=== PATIENT | female | born 1985 | race Caucasian/White ===

== ENCOUNTER 2016-05-07 22:44 | Outpatient (CLI) | payer MEDICAID ==
[2016-05-07 23:21] LABS: APPEARANCE,URINE CLEAR; BILIRUBIN,URINE NEGATIVE (NEGATIVE); GLUCOSE, URINE NEGATIVE (NEGATIVE); KETONES,URINE NEGATIVE (NEGATIVE); LEUKOCYTE ESTERASE,URINE TRACE (NEGATIVE); NITRITE,URINE NEGATIVE (NEGATIVE); PROTEIN,URINE NEGATIVE (NEGATIVE); URINE SPECIFIC GRAVITY 1.004; UROBILINOGEN,URINE NEGATIVE mg/dL (<2.0)
--- NOTE | 2016-05-08 00:55 | Non Stress Test Report ---
Non Stress Test Datetime Report Generated by CPN: 05/08/2016 00:54 DEMOGRAPHIC EGA NST: 34.5 INDICATION Indication for Study: Ordered by Provider VITAL SIGNS Temperature - NST: 97.6 Pulse - NST: 80 RESP - NST: 18 NBPSYS NST: 109 NBPDIA NST: 66 MONITORING Monitor Explained: Monitor Explained; Test Explained Time on Monitor: 05/07/2016 22:59 Time off Monitor: 05/08/2016 00:42 NST Duration: 103 NST INTERVENTIONS NST Interventions: None Physician Notified NST: Hassan BABY A: [id number] BABY A Movement : Present Contraction Frequency : none FHR Baseline : 130 Accelerations : 15X15 Decelerations : None Variability : Moderate 6-25bpm NST Review: Meets Criteria for Reactive NST NST Review and Verified By : Lucas Limon RN NST Results: Reactive NST REPORT Report Trigger: Send Report
--- NOTE | 2016-05-08 04:46 | L&D Flow Sheet ---
LD Flowsheet Datetime Report Generated by CPN: 05/08/2016 04:45 Datetime: 05/08/2016 00:42 Vital Signs Stage of : OB Triage (Crystal [place], RN) Strip Reviewed by: C. [place], RN (Crystal Mandi, RN) Teaching Instructional Method: Verbal; Patient Instructed; Family/Support Person Instructed; Verbalized Understanding (Charlotte Goldberg RN) Plan of Care: Plan of Care Discussed (Charlotte Goldberg RN) Pain Management: Comfort Measures (Charlotte Goldberg RN) PTL/PROM: Hydration; Expected Outcomes (Charlotte Goldberg RN) Related: Common Discomforts of ; Maternal Physical Changes; Hydration; Activity and Rest (Charlotte Goldberg RN) Communication Communication: RN at Bedside; RN Reviewed Strip (Charlotte Goldberg RN) Communication Comments: Pt educated on common pains during , pt instructed to follow up with OB on monday morning Pt educated on signs and symptoms to report if worsening. Pt verbalized understanding. (Charlotte Goldberg RN) Datetime: 05/08/2016 00:35 Vital Signs Stage of : OB Triage (Charlotte Goldberg RN) Strip Reviewed by: Honorio goldberg RN (Charlotte Goldberg RN) Communication Communication: RN Reviewed Strip; Provider Orders Received; Call/Page Placed to Provider (Charlotte Goldberg RN) Provider Notified (Name): Sonya (Charlotte Goldberg RN) Notification Reason: Status Update; Status; Membrane Status; Uterine Activity; Pain (Charlotte Goldberg RN) Communication Comments: Notified Dr. iqbal of pt pain status and OB history. Received orders for pt t o DC and follow up with current OB on monday. (Charlotte Goldberg RN) Datetime: 05/08/2016 00:31 Uterine Activity Monitor Mode: External; Palpation (Crystal [place], RN) Frequency (min): 0 (Crystal Mandi, RN) Resting Tone (Palpate): Relaxed (Crystal [place], RN) Contraction Comments: Irritability (Crystal [place], RN) Assessment A Monitor Mode: External US (Crystal [place], RN) Variability: Moderate 6-25 bpm (Crystal Mandi, RN) Accelerations: 15X15 (Crystal [place], RN) Decelerations: None (Crystal Mandi, RN) Datetime: 05/08/2016 00:12 NBP Sys/Tiera/Mean (mmHg): 109 (QS system process) : 66 (QS system process) : 81 (QS system process) Pulse: 80 (QS system process) LaborFlag: Antepartum (QS system process) Datetime: 05/07/2016 23:53 Monitor Interventions for UA: [place] Adjusted (Crystal [place], RN) Datetime: 05/07/2016 23:46 Monitor Interventions for UA: [place] Adjusted (Crystal Mandi, RN) Datetime: 05/07/2016 23:41 Uterine Activity Monitor Mode: External; Palpation (Crystal Mandi, RN) Monitor Interventions for UA: [place] Adjusted (Crystal [place], RN) Resting Tone (Palpate): Relaxed (Crystal Mandi, RN) Datetime: 05/07/2016 23:13 Uterine Activity Monitor Mode: Palpation (Crystal [place], RN) Resting Tone (Palpate): Relaxed (Crystal Mandi, RN) Assessment A Monitor Mode: External US (Crystal [place], RN) FHR Baseline Rate : 120 (Crystal [place], RN) Variability: Moderate 6-25 bpm (Crystal [place], RN) Decelerations: None (Crystal [place], RN) Patient Care Patient Position/Activity: Left Lateral (Crystal Mandi, RN) Datetime: 05/07/2016 23:11 Monitor Interventions for UA: [place] Adjusted (Crystal [place], RN) Datetime: 05/07/2016 22:58 NBP Sys/Tiera/Mean (mmHg): 109 (QS system process) : 72 (QS system process) : 84 (QS system process) Pulse: 93 (QS system process) LaborFlag: Antepartum (QS system process) Datetime: 05/07/2016 22:50 Vital Signs Stage of : Antepartum (Crystal Mandi, RN) Assessment A Monitor Mode: External US (Crystal [place], RN) Pain Pain Scale: 4 (Crystal Mandi, RN) Pain Presence: Intermittent (Crystal [place], RN) Pain Type: Sharp; Stabbing (Crystal [place], RN) Pain Location: Abdomen; Perineum (Crystal [place], RN) Pain Goal: 2 (Crystal Mandi, RN) Pain Relief Measures: Comfort Measures (Crystal Mandi, RN) Pain Coping: Talking Through Contractions (Crystal Mandi, RN) Vaginal Exam Vaginal Bleeding: None (Crystal [place], RN) Maternal Assessment Level of Consciousness: Fully Conscious (Crystal [place], RN) DTR's/Clonus: DTRs 1+; No Clonus (Crystal Mandi, RN) Headache: Denies (Crystal Mandi, RN) Breath Sounds, Left: Clear and Equal (Crystal [place], RN) Breath Sounds, Right: Clear and Equal (Crystal [place], RN) Nausea/Vomiting: Denies (Crystal Mandi, RN) RUQ Epigastric Pain: Denies (Crystal [place], RN) Teaching Instructional Method: Verbal; Patient Instructed; Family/Support Person Instructed; Verbalized Understanding (Crystal Mandi, RN) Plan of Care: Plan of Care Discussed (Charlotte Goldberg RN) Unit Routine: [place] to Room; Call Ortiz; Bed; Visiting Policy (Charlotte Goldberg RN) Labor/Induction: Labor Stages (Charlotte Goldberg RN) Pain Management: Comfort Measures (Charlotte Goldberg RN) Related: Common Discomforts of (Charlotte Goldberg RN) LaborFlag: Antepartum (QS system process)
--- NOTE | 2016-05-08 04:46 | L&D General Admission ---
General Admit Datetime Report Generated by CPN: 05/08/2016 04:45 INFORMATION Patient Age: 30 (05/07/2016 22:44:QS system process) EDC: 06/13/2016 00:00 (05/07/2016 22:49:Kourtney Limon RN) : 10 (05/07/2016 22:49:Charlotte Raymond RN) Para: 5 (05/08/2016 00:58:Charlotte Raymond RN) Para: 5 (05/07/2016 22:49:Charlotte Raymond RN) Cesareans: 5 (05/07/2016 22:49:Charlotte Raymond RN) Baby, Number in Womb: 1 (05/08/2016 00:58:Charlotte Raymond RN) CARE Primary Mushroom Sorter Grader: Other-Annotate (05/07/2016 22:49:Charlotte Raymond RN) Mushroom Sorter Grader Other: [facility] L_D (05/07/2016 22:49:Charlotte Raymond RN) Adequate Care: Yes (05/07/2016 22:49:Charlotte Raymond RN) Height (in): 64 (05/07/2016 23:28:QS system process) ALLERGIES Medication Allergy: Yes (05/07/2016 22:49:Charlotte Raymond RN) Medication Allergies: ketorolac tromethamine/Hallucinations (11/20/2014); Penicillins/MO/Hallucinations (07/16/2014); clonazepam/SV/elevated BP (07/16/2014); latex/TX/rash (07/16/2014) (05/07/2016 22:44:QS system process) Latex Allergy: Latex Allergies (05/07/2016 22:49:Charlotte Raymond RN) Food Allergies: Onions (05/07/2016 22:49:Charlotte Raymond RN) Environmental Allergies: NA (05/07/2016 22:49:Charlotte Raymond RN) COMMUNICATION Primary Language: Georgian (05/07/2016 22:49:Crystal [place] RN) Communication Barrier(s): None (05/07/2016 22:49:Crystal Mandi, RN) DEMOGRAPHICS Address: [address] [place] [id number] (05/07/2016 22:44:QS system process) Zipcode: [address] (05/07/2016 22:44:QS system process) Home (05/07/2016 22:44:QS system process) N: [phone] (05/07/2016 22:44:QS system process) Next of Kin Name: ASHLEY US (05/07/2016 22:44:QS system process) Next of Kin (05/07/2016 22:44:QS system process) Next of Kin Relationship: FA (05/07/2016 22:44:QS system process) Date of : 1985 (05/07/2016 22:44:QS system process) Marital Status: Single (05/07/2016 22:44:QS system process) Sex: Female (05/07/2016 22:44:QS system process) Race: (05/07/2016 22:44:QS system process) Ethnicity: Non- or (05/07/2016 22:44:QS system process) Taoist: Alevism (05/07/2016 22:44:QS system process) DRUG AND ALCOHOL USE Alcohol: No (05/07/2016 22:49:Charlotte Raymond RN) Cigarettes: Smoker, Current Status Unknown. [id number] (05/07/2016 22:49:Charlotte Raymond RN) Marijuana: No (05/07/2016 22:49:Charlotte Raymond RN) Cocaine: No (05/07/2016 22:49:Charlotte Raymond RN) Other Illicit Drugs: No (05/07/2016 22:49:Charlotte Raymond RN) VACCINE HISTORY Influenza Vaccine: No (05/07/2016 22:49:Charlotte Raymond RN) Pneumococcal Vaccine: No (05/07/2016 22:49:Charlotte Raymond RN) Tetanus Vaccine: Uncertain (05/07/2016 22:49:Charlotte Raymond RN) Tdap Vaccine: Yes (05/07/2016 22:49:Charlotte Raymond RN) Tdap Date: 2015 (05/07/2016 22:49:Charlotte Raymond RN) Hepatitis B Vaccine: No (05/07/2016 22:49:Charlotte Raymond RN) Cooker Sulfate: Other (05/07/2016 22:49:Charlotte Raymond RN) Feeding Preference: Formula (05/07/2016 22:49:Charlotte Raymond RN) Benefit of Breast Feed Discussed: Yes (05/07/2016 22:49:Charlotte Raymond RN) Circumcision: N/A (05/07/2016 22:49:Charlotte Raymond RN) Classes Attended: No (05/07/2016 22:49:Charlotte Raymond RN) Tubal Ligation: No (05/07/2016 22:49:Charlotte Raymond RN) Tubal Authorization Signed: N/A (05/07/2016 22:49:Charlotte Raymond RN) Consent: N/A (05/07/2016 22:49:Charlotte Raymond RN) Consent Signed: N/A (05/07/2016 22:49:Charlotte Raymond RN) Pain Management Plans: Spinal (05/07/2016 22:49:Charlotte Raymond RN) Plans for Labor and Delivery: None (05/07/2016 22:49:Chalrotte Raymond RN) Support Person: Ashley Us (05/07/2016 22:49:Charlotte Raymond RN) Support Person Relationship: Other (05/07/2016 22:49:Charlotte Raymond RN) Other Relationship: patients father (05/07/2016 22:49:Jadyn Hodgson) Cultural/Spritual Practice: Yes (05/07/2016 22:49:Charlotte Raymond RN) Spir/Cult Dietary Needs: Yes (05/07/2016 22:49:Charlotte Raymond RN) LIVING SITUATION/DISCHARGE PLAN Living Arrangements: House (05/07/2016 22:49:Charlotte Raymond RN) Adequate Access to:: Electric; Heat; Refrigeration; Plumbing/Running water; Phone; Transportation (05/07/2016 22:49:Charlotte Raymond RN) WIC Program: Yes (05/07/2016 22:49:Charlotte Raymond RN) Discharge Food And Beverage Order Clerk Person: Ashley Us (05/07/2016 22:49:Charlotte Raymond RN) Person to Help after Discharge: Ashley Us (05/07/2016 22:49:Charlotte Raymond RN) Currently Using Commun Resources: Yes (05/07/2016 22:49:Charlotte Raymond RN) Specify Current Resource Used: Medicaid, WIC (05/07/2016 22:49:Charlotte Raymond RN) Outside Agency/Form Press Operator: Yes (05/07/2016 22:49:Charlotte Raymond RN) Specify Agency/ Form Press Operator: Medicaid, WIC (05/07/2016 22:49:Charlotte Raymond RN) Car Seat for Discharge: Yes (05/07/2016 22:49:Charlotte Raymond RN) OB/PREVIOUS HISTORY Previous Procedures: Ultrasound; NST (05/07/2016 22:49:Charlotte Raymond RN) Current Procedures: Ultrasound; NST (05/07/2016 22:49:Charlotte Raymond RN) History of Previous : Yes (05/07/2016 22:49:Charlotte Raymond RN) History of Gestational Diabetes: Yes (05/07/2016 22:49:Charlotte Raymond RN) History of PIH: No (05/07/2016 22:49:Charlotte Raymond RN) History of Incompetent Cervix: No (05/07/2016 22:49:Charlotte Raymond RN) History of Placenta Previa/Abrup: No (05/07/2016 22:49:Charlotte Raymond RN) History of Macrosomia: No (05/07/2016 22:49:Charlotte Raymond RN) History of IUGR: No (05/07/2016 22:49:Charlotte Raymond RN) History of Hemorrhage: No (05/07/2016 22:49:Charlotte Raymond RN) History of Loss/Stillborn: No (05/07/2016 22:49:Charlotte Raymond RN) History of : No (05/07/2016 22:49:Charlotte Raymond RN) History of D (Rh) Sensitization: No (05/07/2016 22:49:Charlotte Raymond RN) History Recurrent Loss/Stillborn: No (05/07/2016 22:49:Charlotte Raymond RN) History Depression/PP Depression: No (05/07/2016 22:49:Charlotte Raymond RN) History of Uterine Anomaly/DEVANG: No (05/07/2016 22:49:Charlotte Raymond RN) History of Infertility: No (05/07/2016 22:49:Charlotte Raymond RN) History of ART Treatment: No (05/07/2016 22:49:Charlotte Raymond RN) History of DEVANG: No (05/07/2016 22:49:Charlotte Raymond RN) MEDICAL HISTORY Med Hx Diabetes: Yes (05/07/2016 22:49:Charlotte Raymond RN) Diabetes Type: Gestational Diabetes (05/07/2016 22:49:Charlotte Raymond RN) Med Hx Hypertension: No (05/07/2016 22:49:Charlotte Raymond RN) Med Hx Heart Disease: No (05/07/2016 22:49:Charlotte Raymond RN) Med Hx Autoimmune Disorder: No (05/07/2016 22:49:Charlotte Raymond RN) Med Hx Kidney Disease/UTI: No (05/07/2016 22:49:Charlotte Raymond RN) Med Hx Neurologic/Epilepsy: No (05/07/2016 22:49:Charlotte Raymond RN) Med Hx Psychiatric Disorders: No (05/07/2016 22:49:Charlotte Raymond RN) Med Hx Hepatitis/Liver Disease: No (05/07/2016 22:49:Charlotte Raymond RN) Med Hx Varicosities/Phlebitis: No (05/07/2016 22:49:Charlotte Raymond RN) Med Hx Thyroid Dysfunction: No (05/07/2016 22:49:Charlotte Raymond RN) Med Hx Trauma/Violence: No (05/07/2016 22:49:Charlotte Raymond RN) Med Hx Blood Transfusion: No (05/07/2016 22:49:Charlotte Raymond RN) Med Hx Pulmonary (Asthma,TB): No (05/07/2016 22:49:Charlotte Raymond RN) Med Hx Breast: No (05/07/2016 22:49:Charlotte Raymond RN) Med Hx COMMUNICATION ASSISTANT Surgery: No (05/07/2016 22:49:Charlotte Raymond RN) Med Hx Hospitalization/Surgery: Yes (05/07/2016 22:49:Charlotte Raymond RN) Med Hx Anesthetic Complications: No (05/07/2016 22:49:Charlotte Raymond RN) Med Hx Abnormal Pap Smear: No (05/07/2016 22:49:Charlotte Raymond RN) Other Medical Diseases: No (05/07/2016 22:49:Charlotte Raymond RN) Med Hx Significant Family Hx: No (05/07/2016 22:49:Charlotte Raymond RN) Details of Med/Surg Hx: 2006 c section Boy, Gestational HTN 2007 c section Boy 2009 c section Boy Gestational Diabetes 2011 c section boy Gestational Diabetes 2014 c section girl Gestational Diabetes (05/07/2016 22:49:Charlotte Raymond RN) INFECTIOUS HISTORY Inf Hx Gonorrhea: No (05/07/2016 22:49:Charlotte Raymond RN) Inf Hx Chlamydia: No (05/07/2016 22:49:Charlotte Raymond RN) Inf Hx Syphilis: No (05/07/2016 22:49:Charlotte Raymond RN) Inf Hx HIV/AIDS: No (05/07/2016 22:49:Charlotte Raymond RN) Inf Hx Human Papilloma Virus: No (05/07/2016 22:49:Charlotte Raymond RN) Inf Hx Pt/Partner Genital Herpes: No (05/07/2016 22:49:Charlotte Raymond RN) Inf Hx Tuberculosis/Exposure: No (05/07/2016 22:49:Charlotte Raymond RN) Inf Hx Hepatitis B,C: No (05/07/2016 22:49:Charlotte Raymond RN) Inf Hx Rash or Viral Illness: No (05/07/2016 22:49:Charlotte Raymond RN) GENETIC HISTORY Gen Hx Age >=35 at VIPUL: No (05/07/2016 22:49:Charlotte Raymond RN) Gen Hx Thalassemia: No (05/07/2016 22:49:Charlotte Raymond RN) Gen Hx Congenital Heart Defect: No (05/07/2016 22:49:Charlotte Raymond RN) Gen Hx Neural Tube Defect: No (05/07/2016 22:49:Charlotte Raymond RN) Gen Hx Down's Syndrome: Yes (05/07/2016 22:49:Charlotte Raymond RN) Gen Hx Cornelius-Sachs: No (05/07/2016 22:49:Charlotte Raymond RN) Gen Hx Patrizia: No (05/07/2016 22:49:Charlotte Raymond RN) Gen Hx Familial Dysautonomia: No (05/07/2016 22:49:Charlotte Raymond RN) Gen Hx Sickle Cell Disease/Trait: No (05/07/2016 22:49:Charlotte Raymond RN) Gen Hx Hemophilia/Blood Disorder: No (05/07/2016 22:49:Charlotte Raymond RN) Gen Hx Muscular Dystrophy: No (05/07/2016 22:49:Charlotte Raymond RN) Gen Hx Cystic Fibrosis: No (05/07/2016 22:49:Charlotte Raymond RN) Gen Hx Huntingtons Chorea: No (05/07/2016 22:49:Charlotte Raymond RN) Gen Hx Mental Retardation/Autism: Yes (05/07/2016 22:49:Charlotte Raymond RN) Gen Hx Tested for Fragile X: No (05/07/2016 22:49:Charlotte Raymond RN) Gen Hx Other Inher/Chromosomal: No (05/07/2016 22:49:Charlotte Raymond RN) Gen Hx Maternal Metabolic DO: No (05/07/2016 22:49:Charlotte Raymond RN) Gen Hx Pt Father or FOB Defect: No (05/07/2016 22:49:Charlotte Raymond RN) Gen Hx Other Genetic History: No (05/07/2016 22:49:Charlotte Raymond RN) Gen Hx Drugs/Meds since LMP: No (05/07/2016 22:49:Charlotte Raymond RN) Details of Genetic History: Sister maternal side child with down syndrome (05/07/2016 22:49:Charlotte Raymond RN)
--- NOTE | 2016-05-08 04:46 | L&D Current Admission ---
Current Admit Datetime Report Generated by CPN: 05/08/2016 04:45 ADMISSION INFORMATION Chief Complaint: Contractions (05/07/2016 22:50:Crystal Mandi, DAPHNE)
--- NOTE | 2016-05-08 04:47 | Antepartum Discharge Summary ---
Antepartum DC Datetime Report Generated by CPN: 05/08/2016 04:45 DIET/ACTIVITY/RESTRICTIONS Diet: Regular (05/08/2016 00:58:Crystal Mandi, RN) Activity: Normal Activity (05/08/2016 00:58:Crystal Mandi, RN) TEACHING/INSTRUCTIONS/REFERRALS Instructions Given To: Tayler Sanchez (05/08/2016 00:58:Crystal Mandi, RN) Instructions Understood: Patient Verbalized Understanding; Support Person Verbalized Understanding (05/08/2016 00:58:Charlotte Raymond RN) Referrals: None (05/08/2016 00:58:Charlotte Raymond RN) Educational Materials- Other: NST, Kick counts, labor (05/08/2016 00:58:Charlotte Raymond RN) DISCHARGE INFORMATION Discharged AMA: No (05/08/2016 00:58:Charlotte Raymond RN) Discharge Date/Time: 05/08/2016 00:49 (05/08/2016 00:58:Charlotte Raymond RN) Discharged To: Home (05/08/2016 00:58:Charlotte Raymond RN) Discharge Provider Name: Sonya (05/08/2016 00:58:Charlotte Raymond RN) Accompanied By: Asher Us (05/08/2016 00:58:Charlotte Raymond RN) Discharge Method: Ambulatory (05/08/2016 00:58:Charlotte Raymond RN) Condition: Stable (05/08/2016 00:58:Charlotte Raymond RN) FOLLOW UP INFORMATION Follow Up With: Other-Annotate (05/08/2016 00:58:Charlotte Raymond RN) Follow Up On: Tomorrow (05/08/2016 00:58:Charlotte Raymond RN) Follow Up Phone Number: Adelaide-Zev (05/08/2016 00:58:Charlotte Raymond RN) Comments: Pt educated on common pains during (05/08/2016 00:58:Charlotte Raymond RN)
--- NOTE | 2016-05-08 04:47 | L&D Discharge Summary ---
OB Discharge Summary Datetime Report Generated by CPN: 05/08/2016 04:45 DISCHARGE DIAGNOSIS Diagnosis/Symptoms: False Labor Diagnoses/Symptoms Other: Not in labor Gestation: 34.5 Number of Babies in Womb: 1 Parity: 5 DIET/ACTIVITY/RESTRICTIONS Diet: Regular Activity: Normal Activity TEACHING/INSTRUCTIONS/REFERRALS Instructions Given To: Tayler Maciasnard Instructions Understood: Patient Verbalized Understanding; Support Person Verbalized Understanding Referrals: None Educational Materials- Other: NST, Kick counts, labor DISCHARGE INFORMATION Discharged AMA: No Discharge Date/Time: 05/08/2016 00:49 Discharged To: Home Discharge Provider Name: Hassan Accompanied By: Asher Mantle Discharge Method: Ambulatory Condition: Stable FOLLOW UP INFORMATION Follow Up With: Other-Annotate Follow Up On: Tomorrow Follow Up Phone Number: Other-Annotate Comments: Pt educated on common pains during
--- NOTE | 2016-05-08 04:47 | L&D Admission Assessment ---
LD ADM ASMT Datetime Report Generated by CPN: 05/08/2016 04:45 PATIENT ASSESSMENT Assessment Type: Triage (05/07/2016 22:50:Crystal [place], RN) WEIGHT Weight (lb): 174 (05/07/2016 23:28:QS system process) Weight (kg): 79.1 (05/07/2016 23:28:QS system process) PAIN Pain Scale: 4 (05/07/2016 22:50:Crystal Mandi, RN) Pain Presence: Intermittent (05/07/2016 22:50:Crystal Mandi, RN) Pain Type: Sharp; Stabbing (05/07/2016 22:50:Crystal [place], RN) Pain Location: Abdomen; Perineum (05/07/2016 22:50:Crystal [place], RN) Pain Goal: 2 (05/07/2016 22:50:Crystal [place], RN) Pain Related to Contraction: Yes (05/07/2016 22:50:Crystal [place], RN) CONTRACTIONS Frequency (min): 0 (05/08/2016 00:31:Crystal Mandi, RN) Resting Tone [place]: Relaxed (05/08/2016 00:31:Crystal Mandi, RN) Resting Tone [place]: Relaxed (05/07/2016 23:41:Crystal [place], RN) Resting Tone [place]: Relaxed (05/07/2016 23:13:Crystal Mandi, RN) Contraction Comments: Irritability (05/08/2016 00:31:Crystal [place], RN) NEURO Level of Consciousness: Fully Conscious (05/07/2016 22:50:Crystal [place], RN) DTR's/Clonus: DTRs 1+; No Clonus (05/07/2016 22:50:Crystal Mandi, RN) Headache: Denies (05/07/2016 22:50:Crystal Mandi, RN) Dizziness: No (05/07/2016 22:50:Crystal Mandi, RN) Blurred Vision: No (05/07/2016 22:50:Crystal [place], RN) Extremity Numbness/Tingling : None (05/07/2016 22:50:Crystal [place], RN) Extremity Movement: Full Range of Motion (05/07/2016 22:50:Crystal [place], RN) CARDIOVASCULAR Heart Rhythm: Regular (05/07/2016 22:50:Crystal Mandi, RN) Nailbeds: [place] (05/07/2016 22:50:Crystal [place], RN) Capillary Refill: Less than 3 Seconds (05/07/2016 22:50:Crystal Mandi, RN) Lower Extremities Edema: None (05/07/2016 22:50:Charlotte Raymond RN) Lower Extremities Edema Degree: None (05/07/2016 22:50:Charlotte Raymond RN) Upper Extremities Edema: None (05/07/2016 22:50:Charlotte Raymond RN) Upper Extremities Edema Degree: None (05/07/2016 22:50:Charlotte Raymond RN) Facial Edema: None (05/07/2016 22:50:Charlotte Raymond RN) Nigel's Sign Left Leg: Negative (05/07/2016 22:50:Crystal [place], RN) Nigel's Sign Right Leg: Negative (05/07/2016 22:50:Crystal [place], RN) DVT RISK ASSESSMENT DVT Risk Age: Age less than 41 years (05/07/2016 22:50:Charlotte Raymond RN) DVT Risk BMI: BMI<31 (05/07/2016 22:50:Charlotte Raymond RN) DVT Risk Surgery: History of Prior Major Surgery (05/07/2016 22:50:Charlotte [place] RN) RESPIRATORY Respiratory Effort: Unlabored; Regular Rhythm; Equal Expansion (05/07/2016 22:50:Crystal [place], RN) Breath Sounds, Left: Clear and Equal (05/07/2016 22:50:Crystal [place], RN) Breath Sounds, Right: Clear and Equal (05/07/2016 22:50:Crystal Mandi, RN) Cough Productivity: None (05/07/2016 22:50:Crystal Mandi, RN) GASTROINTESTINAL Nausea/Vomiting: Denies (05/07/2016 22:50:Crystal [place], RN) Bowel Sounds: Normoactive (05/07/2016 22:50:Crystal Mandi, RN) RUQ Epigastric Pain: Denies (05/07/2016 22:50:Crystal [place], RN) Response to Antacids: Pain Relieved (05/07/2016 22:50:Crystal [place], RN) Bowel Patterns: Soft, Formed Stool (05/07/2016 22:50:Crystal Mandi, RN) Hemorrhoids: None (05/07/2016 22:50:Crystal Mandi, RN) Diet Type: Regular diet (05/07/2016 22:50:Crystal [place], RN) Last Meal: 05/07/2016 18:00 (05/07/2016 22:50:Crystal Mandi, RN) GENITOURINARY Bladder: Nondistended (05/07/2016 22:50:Crystal Mandi, RN) Frequency of Urination: No (05/07/2016 22:50:Crystal [place], RN) Urination Burning: No (05/07/2016 22:50:Crystal [place], RN) CVA Tenderness: No (05/07/2016 22:50:Crystal [place], RN) Vaginal Bleeding: None (05/07/2016 22:50:Crystal [place], RN) Vaginal Discharge Amount: None (05/07/2016 22:50:Crystal Mandi, RN) Vaginal Discharge Color: N/A (05/07/2016 22:50:Crystal Mandi, RN) Vaginal Discharge Character: None (05/07/2016 22:50:Crystal Mandi, RN) INTEGUMENTARY Skin Color: Normal for Race (05/07/2016 22:50:Crystal [place], RN) Skin Temperature: Warm (05/07/2016 22:50:Crystal [place], RN) Skin Moisture: Dry (05/07/2016 22:50:Crystal [place], RN) PIPPA SKIN ASSESSMENT Pippa Scale Sensory Perception: No Impairment- Responds to verbal commands. Has no sensory deficit which would limit ability to feel or voice pain or discomfort (05/07/2016 22:50:Charlotte Raymond RN) Pippa Scale Moisture: Rarely Moist- Skin is usually dry. Linen only requires changing at routine intervals (05/07/2016 22:50:Charlotte Raymond RN) Pippa Scale Activity: Walks Frequently- Walks outside the room at least twice a day and inside room at least every 2 hours during the day. (05/07/2016 22:50:Charlotte Raymond RN) Pippa Scale Mobility: No Limitations- Makes major and frequent changes in position without assistance (05/07/2016 22:50:Charlotte Raymond RN) Pippa Scale Nutrition: Excellent- Eats most of every meal. Never refuses a meal. Usually eats a total of 4 or more servings of meat and dairy products. Occasionally eats between meals. Does not require supplementation (05/07/2016 22:50:Charlotte Raymond RN) Pippa Scale Friction and Shear: No Apparent Problem- Moves in bed and in chair independently and has sufficient muscle strength to lift up completely during move. Maintains good position in bed or chair at all times (05/07/2016 22:50:Charlotte Raymond RN) Pippa Scale Total: 23 (05/07/2016 22:50:QS system process) Pippa Scale Risk: No Risk of Pressure Ulcer Noted at this Time (05/07/2016 22:50:QS system process) SUPPORT Family Support: Family supportive (05/07/2016 22:50:Crystal Mandi, RN) Emotional State: Calm/Relaxed (05/07/2016 22:50:Crystal [place], RN) SAFETY Call [place] Within Reach: Yes (05/07/2016 22:50:Crystal Mandi, RN) Side Rails Up: Yes (05/07/2016 22:50:Crystal [place], RN) Bed Wheels Locked: Yes (05/07/2016 22:50:Crystal Mandi, RN) Arm Bands Present: Yes (05/07/2016 22:50:Crystal [place], RN) Isolation: [place] (05/07/2016 22:50:Crystal [place], RN) FALL SCREEN Fall Risk History of Falling: (0) No (05/07/2016 22:50:Charlotte Raymond RN) Fall Risk Secondary Diagnosis: (0) No (05/07/2016 22:50:Charlotte Ryamond RN) Fall Risk Ambulatory Aid: (0) None/Bedrest/Wheelchair/Nurse Assist (05/07/2016 22:50:Charlotte Raymond RN) Fall Risk IV Therapy: (0) No (05/07/2016 22:50:Charlotte Raymond RN) Fall Risk Gait: (0) Normal/Bedrest/Immobile (05/07/2016 22:50:Charlotte Raymond RN) Fall Risk Mental Status: (0) Oriented to Own Ability (05/07/2016 22:50:Charlotte Raymond RN) Fall Risk Score: 0 (05/07/2016 22:50:QS system process) Fall Risk Score Definition: No Risk: No action required (05/07/2016 22:50:QS system process) RECENT TRAVEL/INFECTIOUS DISEASE Recent Exp Communicable Disease: No (05/07/2016 22:50:Charlotte Raymond RN) Cough or Fever: No (Annotations: pt reports a low fever this am and she took tylenol cold and flu.) (05/07/2016 22:50:Charlotte Raymond RN) Foreign Travel Past 10 Days: No (05/07/2016 22:50:Charlotte Raymond RN) Open Wounds or Sores: No (05/07/2016 22:50:Charlotte Raymond RN) Prior Antibiotic Resistance Tx: No (05/07/2016 22:50:Charlotte Raymond RN) Cultures Obtained: Not Applicable (05/07/2016 22:50:Charlotte Raymond RN) Isolation Initiated: No (05/07/2016 22:50:Charlotte Raymond RN) Pt/Family Education: Not Applicable (05/07/2016 22:50:Charlotte Raymond RN) BABY A FHR Baseline Rate (bpm) Baby A: 120 (05/07/2016 23:13:Charlotte Raymond RN) Variability Baby A: Moderate 6-25 bpm (05/08/2016 00:31:Charlotte Raymond RN) Variability Baby A: Moderate 6-25 bpm (05/07/2016 23:13:Charlotte Raymond RN) Accelerations Baby A: 15X15 (05/08/2016 00:31:Charlotte Raymond RN) Decelerations Baby A: None (05/08/2016 00:31:Charlotte Raymond RN) Decelerations Baby A: None (05/07/2016 23:13:Charlotte Raymond RN)
[2016-05-10 15:06] LABS: URINE BARBITURATES SCREEN NEGATIVE; URINE METHADONE SCREEN NEGATIVE; URINE PHENCYCLIDINE SCREEN NEGATIVE
== END 2016-05-08 01:04 | disposition home or self-care (01) ==
LOC: LC 22:44
PROVIDERS: ATTEND Obstetrics & Gynecology
PROC: 4A1HXCZ Monitoring of Products of Conception, Cardiac Rate, External Approach (ICD-10-PCS; principal; 2016-05-07)
DX: O47.03 False labor before 37 completed weeks of gestation, third trimester (principal); Z3A.34 34 weeks gestation of pregnancy
CPT/HCPCS: 59025; 80307; 81001

== ENCOUNTER 2016-05-22 14:53 | Outpatient (CLI) | payer MEDICAID ==
[2016-05-22 15:31] LABS: APPEARANCE,URINE CLEAR; BILIRUBIN,URINE NEGATIVE (NEGATIVE); GLUCOSE, URINE NEGATIVE (NEGATIVE); KETONES,URINE NEGATIVE (NEGATIVE); LEUKOCYTE ESTERASE,URINE NEGATIVE (NEGATIVE); NITRITE,URINE NEGATIVE (NEGATIVE); PROTEIN,URINE NEGATIVE (NEGATIVE); URINE SPECIFIC GRAVITY 1.003; UROBILINOGEN,URINE NEGATIVE mg/dL (<2.0)
[2016-05-22 15:54] LABS: URINE BARBITURATES SCREEN NEGATIVE; URINE METHADONE SCREEN NEGATIVE; URINE PHENCYCLIDINE SCREEN NEGATIVE
--- NOTE | 2016-05-22 16:01 | L&D Flow Sheet ---
LD Flowsheet Datetime Report Generated by CPN: 05/22/2016 16:00 Datetime: 05/22/2016 15:45 Vital Signs NBP Sys/Tiera/Mean (mmHg): 109 (QS system process) : 59 (QS system process) : 78 (QS system process) Pulse: 100 (QS system process) Communication LaborFlag: OB Triage (QS system process) Datetime: 05/22/2016 15:39 Vaginal Exam Dilatation (cm): 0.0 (Sallie Ananth, RN) Effacement (%): 0 (Sallie Ananth, RN) Station: -3 (Sallie Ananth, RN) Exam by: H. Ananth, RN (Sallie Ananth, RN) Datetime: 05/22/2016 15:17 Vital Signs NBP Sys/Tiera/Mean (mmHg): 90 (QS system process) : 59 (QS system process) : 68 (QS system process) Pulse: 112 (QS system process) Communication LaborFlag: OB Triage (QS system process) Datetime: 05/22/2016 15:15 Pain Pain Scale: 5 (Sallie Ananth, RN) Maternal Assessment Level of Consciousness: Fully Conscious (Sallie Ananth, RN) DTR's/Clonus: DTRs 1+; No Clonus (Sallie Ananth, RN) Headache: Denies (Sallie Ananth, RN) Breath Sounds, Left: Clear and Equal (Sallie Ananth, RN) Breath Sounds, Right: Clear and Equal (Sallie Ananth, RN) Nausea/Vomiting: Hx of Nausea/Vomiting (Sallie Ananth, RN) RUQ Epigastric Pain: Denies (Sallie Ananth, RN) Communication LaborFlag: OB Triage (QS system process)
--- NOTE | 2016-05-23 04:46 | L&D Discharge Summary ---
OB Discharge Summary Datetime Report Generated by CPN: 05/23/2016 04:46 DISCHARGE DIAGNOSIS Diagnosis/Symptoms: False Labor; Abdominal Pain Diagnoses/Symptoms Other: Not in labor Gestation: 36.6 Number of Babies in Womb: 1 Parity: 5 DIET/ACTIVITY/RESTRICTIONS Diet: Regular Activity: Normal Activity TEACHING/INSTRUCTIONS/REFERRALS Instructions Given To: Patient Instructions Understood: Patient Verbalized Understanding; Support Person Verbalized Understanding Referrals: None Educational Materials- Other: early labors signs and kick counts DISCHARGE INFORMATION Discharged AMA: No Discharge Date/Time: 05/22/2016 18:09 Discharged To: Home Discharge Provider Name: Dr. Strauss Accompanied By: Significant other Discharge Method: Ambulatory Condition: Stable FOLLOW UP INFORMATION Follow Up With: Other-Annotate Follow Up On: Tomorrow Follow Up Phone Number: Other-Annotate Comments: Patient to follow up at [facility]. Patient instructed to return for early labor signs
--- NOTE | 2016-05-23 04:46 | L&D General Admission ---
General Admit Datetime Report Generated by CPN: 05/23/2016 04:46 INFORMATION Para: 5 (05/22/2016 18:07:Sallie Ananth, RN) Baby, Number in Womb: 1 (05/22/2016 18:07:Sallie Ananth, RN) DEMOGRAPHICS Next of Kin Name: MARK MANTLE (05/22/2016 14:55:QS system process) Next of Kin (05/22/2016 14:55:QS system process) Next of Kin Relationship: LILIANE (05/22/2016 14:55:QS system process)
--- NOTE | 2016-05-23 04:46 | Antepartum Discharge Summary ---
Antepartum DC Datetime Report Generated by CPN: 05/23/2016 04:46 DIET/ACTIVITY/RESTRICTIONS Diet: Regular (05/22/2016 18:07:Sallie Ananth, RN) Activity: Normal Activity (05/22/2016 18:07:Sallie Ananth, RN) TEACHING/INSTRUCTIONS/REFERRALS Instructions Given To: Patient (05/22/2016 18:07:Sallie Ananth, RN) Instructions Understood: Patient Verbalized Understanding; Support Person Verbalized Understanding (05/22/2016 18:07:Sallie Ananth, RN) Referrals: None (05/22/2016 18:07:Sallie Wadsworth RN) Educational Materials- Other: early labors signs and kick counts (05/22/2016 18:07:Sallie Wadsworth RN) DISCHARGE INFORMATION Discharged AMA: No (05/22/2016 18:07:Sallie Wadsworth RN) Discharge Date/Time: 05/22/2016 18:09 (05/22/2016 18:07:Sallie Wadsworth RN) Discharged To: Home (05/22/2016 18:07:Sallie Wadsworth RN) Discharge Provider Name: Dr. Strauss (05/22/2016 18:07:Sallie Wadsworth RN) Accompanied By: Significant other (05/22/2016 18:07:Sallie Wadsworth RN) Discharge Method: Ambulatory (05/22/2016 18:07:Sallie Wadsworth RN) Condition: Stable (05/22/2016 18:07:Sallie Wadsworth RN) FOLLOW UP INFORMATION Follow Up With: Other-Annotate (05/22/2016 18:07:Sallie Wadsworth RN) Follow Up On: Tomorrow (05/22/2016 18:07:Sallie Wadsworth RN) Follow Up Phone Number: Other-Annotate (05/22/2016 18:07:Sallie Wadsworth RN) Comments: Patient to follow up at [facility] tomorrow. Patient instructed to return for early labor signs (05/22/2016 18:07:Sallie Wadsworth RN)
--- NOTE | 2016-05-23 04:46 | L&D Admission Assessment ---
LD ADM ASMT Datetime Report Generated by CPN: 05/23/2016 04:46 ONSET OF LABOR Onset of Labor: 05/22/2016 15:21 (05/22/2016 15:15:Sallie Ananth, RN) PAIN Pain Scale: 5 (05/22/2016 15:15:Sallie Ananth, RN) CONTRACTIONS Frequency (min): irregular (05/22/2016 17:28:Sallie Ananth, RN) Frequency (min): irregular (05/22/2016 17:00:Sallie Ananth, RN) Frequency (min): irregular (05/22/2016 16:28:Sallie Ananth, RN) Frequency (min): irregular (05/22/2016 16:00:Sallie Ananth, RN) Frequency (min): irregular (05/22/2016 15:30:Sallie Ananth, RN) Duration (sec): 60-100 (05/22/2016 17:28:Sallie Ananth, RN) Duration (sec): 60-120 (05/22/2016 17:00:Sallie Ananth, RN) Duration (sec): 60-120 (05/22/2016 16:28:Sallie Ananth, RN) Duration (sec): 30-70 (05/22/2016 16:00:Sallie Ananth, RN) Duration (sec): 30-70 (05/22/2016 15:30:Sallie Ananth, RN) Quality: Mild (05/22/2016 17:28:Sallie Ananth, RN) Quality: Mild (05/22/2016 17:00:Sallie Ananth, RN) Quality: Mild (05/22/2016 16:28:Sallie Ananth, RN) Quality: Mild (05/22/2016 16:00:Sallie Ananth, RN) Quality: Mild (05/22/2016 15:30:Sallie Ananth, RN) Resting Tone [place]: Relaxed (05/22/2016 17:28:Sallie Ananth, RN) Resting Tone [place]: Relaxed (05/22/2016 17:00:Sallie Ananth, RN) Resting Tone [place]: Relaxed (05/22/2016 16:28:Sallie Ananth, RN) Resting Tone [place]: Relaxed (05/22/2016 16:00:Sallie Wadsworth RN) Resting Tone [place]: Relaxed (05/22/2016 15:30:Sallie Wadsworth, RN) VAGINAL EXAM Dilatation (cm): 0.0 (05/22/2016 15:39:Sallie Wadsworth RN) Effacement (%): 0 (05/22/2016 15:39:Sallie Wadsworth RN) Station: -3 (05/22/2016 15:39:Sallie Wadsworth, RN) NEURO Level of Consciousness: Fully Conscious (05/22/2016 15:15:Sallie Wadsworth RN) DTR's/Clonus: DTRs 1+; No Clonus (05/22/2016 15:15:Sallie Wadsworth RN) Headache: Denies (05/22/2016 15:15:Sallie Wadsworth RN) Dizziness: No (05/22/2016 15:15:Sallie Wadsworth RN) Blurred Vision: No (05/22/2016 15:15:Sallie Wadsworth RN) Extremity Numbness/Tingling : None (05/22/2016 15:15:Sallie Wadsworth RN) Extremity Movement: Full Range of Motion (05/22/2016 15:15:Sallie Wadsworth RN) CARDIOVASCULAR Heart Rhythm: Regular (05/22/2016 15:15:Sallie Wadsworth RN) Nailbeds: [place] (05/22/2016 15:15:Sallie Wadsworth RN) Capillary Refill: Less than 3 Seconds (05/22/2016 15:15:Sallie Wadsworth RN) Lower Extremities Edema: Bilateral Lower Extremities (05/22/2016 15:15:Sallie Wadsworth RN) Lower Extremities Edema Degree: 1+ (05/22/2016 15:15:Sallie Wadsworth RN) Upper Extremities Edema: None (05/22/2016 15:15:Sallie Wadsworth RN) Upper Extremities Edema Degree: None (05/22/2016 15:15:Sallie Wadsworth RN) Facial Edema: None (05/22/2016 15:15:Sallie Wadsworth RN) Nigel's Sign Left Leg: Negative (05/22/2016 15:15:Sallie Wadsworth RN) Nigel's Sign Right Leg: Negative (05/22/2016 15:15:Sallie Wadsworth RN) DVT RISK ASSESSMENT DVT Risk Age: Age less than 41 years (05/22/2016 15:15:Sallie Wadsworth RN) DVT Risk BMI: BMI 31 to 40 (05/22/2016 15:15:Sallie Wadsworth RN) DVT Risk Surgery: Major Surgery (1-2 Hours) (05/22/2016 15:15:Sallie Wadsworth RN) DVT Risk Other: Women Only- or (<1 month) (05/22/2016 15:15:Sallie Wadsworth RN) DVT Risk Total: 4 (05/22/2016 15:15:QS system process) DVT Risk Text: High Risk (20-40%)- Consider stockings, compresssion device, pharmacological therapy per hospital policy (05/22/2016 15:15:QS system process) RESPIRATORY Respiratory Effort: Unlabored; Regular Rhythm; Equal Expansion (05/22/2016 15:15:Sallie Wadsworth RN) Breath Sounds, Left: Clear and Equal (05/22/2016 15:15:Sallie Wadsworth, RN) Breath Sounds, Right: Clear and Equal (05/22/2016 15:15:Salliecarlos Gonsaless, RN) Cough Productivity: None (05/22/2016 15:15:Salliecarlos Wadsworth, RN) GASTROINTESTINAL Nausea/Vomiting: Hx of Nausea/Vomiting (05/22/2016 15:15:Sallie Wadsworth RN) Bowel Sounds: Normoactive (05/22/2016 15:15:Sallie Wadsworth RN) RUQ Epigastric Pain: Denies (05/22/2016 15:15:Sallie Wadsworth RN) Bowel Patterns: Constipation (05/22/2016 15:15:Sallie Wadsworth RN) Hemorrhoids: None (05/22/2016 15:15:Sallie Wadsworth RN) Diet Type: Regular diet (05/22/2016 15:15:Sallie Wadsworth RN) Last Meal: 05/22/2016 11:00 (05/22/2016 15:15:Sallie Wadsworth RN) GENITOURINARY Bladder: Nondistended (05/22/2016 15:15:Sallie Wadsworth RN) Frequency of Urination: No (05/22/2016 15:15:Sallie Wadsworth RN) Urination Burning: No (05/22/2016 15:15:Sallie Wadsworth RN) CVA Tenderness: No (05/22/2016 15:15:Sallie Wadsworth RN) Vaginal Bleeding: None (05/22/2016 15:15:Sallie Wadsworth RN) Vaginal Discharge Amount: None (05/22/2016 15:15:Sallie Wadsworth RN) Vaginal Discharge Color: N/A (05/22/2016 15:15:Sallie Wadsworth RN) Vaginal Discharge Character: None (05/22/2016 15:15:Sallie Wadsworth RN) INTEGUMENTARY Skin Color: Normal for Race (05/22/2016 15:15:Sallie Wadsworth RN) Skin Temperature: Warm (05/22/2016 15:15:Sallie Wadsworth RN) Skin Moisture: Dry (05/22/2016 15:15:Sallie Wadsworth RN) Surgical Scars: X 5 (05/22/2016 15:15:Sallie Wadsworth RN) PIPPA SKIN ASSESSMENT Pippa Scale Sensory Perception: No Impairment- Responds to verbal commands. Has no sensory deficit which would limit ability to feel or voice pain or discomfort (05/22/2016 15:15:Sallie Wadsworth RN) Pippa Scale Moisture: Rarely Moist- Skin is usually dry. Linen only requires changing at routine intervals (05/22/2016 15:15:Sallie Wadsworth RN) Pippa Scale Activity: Walks Frequently- Walks outside the room at least twice a day and inside room at least every 2 hours during the day. (05/22/2016 15:15:Sallie Wadsworth RN) Pippa Scale Mobility: No Limitations- Makes major and frequent changes in position without assistance (05/22/2016 15:15:Sallie Wadsworth RN) Pippa Scale Nutrition: Excellent- Eats most of every meal. Never refuses a meal. Usually eats a total of 4 or more servings of meat and dairy products. Occasionally eats between meals. Does not require supplementation (05/22/2016 15:15:Sallie Wadsworth RN) Pippa Scale Friction and Shear: No Apparent Problem- Moves in bed and in chair independently and has sufficient muscle strength to lift up completely during move. Maintains good position in bed or chair at all times (05/22/2016 15:15:Sallie Wadsworth RN) Pippa Scale Total: 23 (05/22/2016 15:15:QS system process) Pippa Scale Risk: No Risk of Pressure Ulcer Noted at this Time (05/22/2016 15:15:QS system process) SUPPORT Family Support: Significant Other supportive, at bedside frequently; Family supportive (05/22/2016 15:15:Sallie Wadsworth RN) Emotional State: Restless (05/22/2016 15:15:Sallie Wadsworth RN) SAFETY Call Ortiz Within Reach: Yes (05/22/2016 15:15:Sallie Wadsworth RN) Side Rails Up: Yes (05/22/2016 15:15:Sallie Wadsworth RN) Bed Wheels Locked: Yes (05/22/2016 15:15:Sallie Wadsworth RN) Arm Bands Present: Yes (05/22/2016 15:15:Sallie Wadsworth RN) Isolation: [place] (05/22/2016 15:15:Sallie Wadsworth RN) FALL SCREEN Fall Risk History of Falling: (0) No (05/22/2016 15:15:Sallie Wadsworth RN) Fall Risk Secondary Diagnosis: (0) No (05/22/2016 15:15:Sallie Wadsworth RN) Fall Risk Ambulatory Aid: (0) None/Bedrest/Wheelchair/Nurse Assist (05/22/2016 15:15:Sallie Wadsworth RN) Fall Risk IV Therapy: (0) No (05/22/2016 15:15:Sallie Wadsworth RN) Fall Risk Gait: (0) Normal/Bedrest/Immobile (05/22/2016 15:15:Sallie Wadsworth RN) Fall Risk Mental Status: (0) Oriented to Own Ability (05/22/2016 15:15:Sallie Wadsworth RN) Fall Risk Score: 0 (05/22/2016 15:15:QS system process) Fall Risk Score Definition: No Risk: No action required (05/22/2016 15:15:QS system process) RECENT TRAVEL/INFECTIOUS DISEASE Recent Exp Communicable Disease: No (05/22/2016 15:15:Sallie Wadsworth RN) Cough or Fever: No (05/22/2016 15:15:Sallie Wadsworth RN) Foreign Travel Past 10 Days: No (05/22/2016 15:15:Sallie Wadsworth RN) Open Wounds or Sores: No (05/22/2016 15:15:Sallie Wadsworth RN) Prior Antibiotic Resistance Tx: No (05/22/2016 15:15:Sallie Wadsworth RN) Cultures Obtained: Not Applicable (05/22/2016 15:15:Sallie Wadsworth RN) Isolation Initiated: No (05/22/2016 15:15:Sallie Wadsworth RN) Pt/Family Education: Not Applicable (05/22/2016 15:15:Sallie Wadsworth RN) BABY A FHR Baseline Rate (bpm) Baby A: 120 (05/22/2016 17:28:Sallie Ananth, RN) FHR Baseline Rate (bpm) Baby A: 130 (05/22/2016 17:00:Salliecarlos Gonsaless, RN) FHR Baseline Rate (bpm) Baby A: 130 (05/22/2016 16:28:Salliecarlos Gonsaless, RN) FHR Baseline Rate (bpm) Baby A: 130 (05/22/2016 16:00:Sallie Ananth, RN) FHR Baseline Rate (bpm) Baby A: 130 (05/22/2016 15:30:Salliecarlos Wadsworth, RN) Variability Baby A: Moderate 6-25 bpm (05/22/2016 17:28:Sallie Ananth, RN) Variability Baby A: Moderate 6-25 bpm (05/22/2016 17:00:Sallie Ananth, RN) Variability Baby A: Moderate 6-25 bpm (05/22/2016 16:28:Sallie Ananth, RN) Variability Baby A: Moderate 6-25 bpm (05/22/2016 16:00:Salliecarlos Gonsaless, RN) Variability Baby A: Moderate 6-25 bpm (05/22/2016 15:30:Salliecarlos Gonsaless, RN) Accelerations Baby A: 15X15 (05/22/2016 17:28:Salliecarlos Gonsaless, RN) Accelerations Baby A: 15X15 (05/22/2016 17:00:Salliecarlos Wadsworth, RN) Accelerations Baby A: 15X15 (05/22/2016 16:28:Salliecarlos Gonsaless, RN) Accelerations Baby A: None (05/22/2016 16:00:Salliecarlos Wadsworth, RN) Accelerations Baby A: 15X15 (05/22/2016 15:30:Salliecarlos Wadsworth, RN) Decelerations Baby A: None (05/22/2016 17:28:Sallie Ananth, RN) Decelerations Baby A: None (05/22/2016 17:00:Salliecarlos Gonsaless, RN) Decelerations Baby A: None (05/22/2016 16:28:Salliecarlos Gonsaless, RN) Decelerations Baby A: None (05/22/2016 16:00:Salliecarlos Gonsaless, RN) Decelerations Baby A: None (05/22/2016 15:30:Salliecarlos Wadsworth, RN)
--- NOTE | 2016-05-23 04:46 | L&D Flow Sheet ---
LD Flowsheet Datetime Report Generated by CPN: 05/23/2016 04:46 Datetime: 05/22/2016 17:54 Communication Comments: Monitors removed, patient D/C home. (Sallie Ananth, RN) Datetime: 05/22/2016 17:52 Patient Care Comments: IV D/C (Sallie Ananth, RN) Datetime: 05/22/2016 17:49 NBP Sys/Tiera/Mean (mmHg): 105 (QS system process) : 68 (QS system process) : 82 (QS system process) Pulse: 109 (QS system process) Communication Comments: Orders received to D/C patient home (Sallie Wadsworth RN) LaborFlag: OB Triage (QS system process) Datetime: 05/22/2016 17:41 Communication Comments: Dr. Strauss at bedside explaining plan of care to patient. Patient verbalized understanding that contractions are not labor contractions. Dr. Strauss to give rx for ambien and D/C patient home (Sallie Wadsworth RN) Datetime: 05/22/2016 17:39 Communication Comments: Dr. Strauss reviewing stored strip, prenatals, updated on cervical exam, vitals, and pain (Sallie Ananth, RN) Datetime: 05/22/2016 17:34 NBP Sys/Tiera/Mean (mmHg): 112 (QS system process) : 71 (QS system process) : 86 (QS system process) Pulse: 90 (QS system process) LaborFlag: OB Triage (QS system process) Datetime: 05/22/2016 17:28 Monitor Mode: External; Palpation (Sallie Ananth, RN) Frequency (min): irregular (Sallie Ananth, RN) Quality: Mild (Sallie Ananth, RN) Duration (sec): 60-100 (Sallie Ananth, RN) Resting Tone (Palpate): Relaxed (Sallie Ananth, RN) Monitor Mode: External US (Sallie Ananth, RN) FHR Baseline Rate : 120 (Sallie Ananth, RN) Variability: Moderate 6-25 bpm (Sallie Ananth, RN) Accelerations: 15X15 (Sallie Ananth, RN) Decelerations: None (Asllie Ananth, RN) I/O Interventions: Up to BR (Sallie Ananth, RN) Datetime: 05/22/2016 17:19 NBP Sys/Tiera/Mean (mmHg): 110 (QS system process) : 71 (QS system process) : 85 (QS system process) Pulse: 85 (QS system process) LaborFlag: OB Triage (QS system process) Datetime: 05/22/2016 17:00 Monitor Mode: External; Palpation (Sallie Ananth, RN) Frequency (min): irregular (Sallie Ananth, RN) Quality: Mild (Sallie Ananth, RN) Duration (sec): 60-120 (Sallie Ananth, RN) Resting Tone (Palpate): Relaxed (Sallie Ananth, RN) Monitor Mode: External US (Sallie Ananth, RN) FHR Baseline Rate : 130 (Sallie Ananth, RN) Variability: Moderate 6-25 bpm (Sallie Ananth, RN) Accelerations: 15X15 (Sallie Ananth, RN) Decelerations: None (Sallie Ananth, RN) Datetime: 05/22/2016 16:46 Bedside Blood Glucose: 92 (QS system process) Bedside Blood Glucose: 92 (Sallie Wadsworth RN) LaborFlag: OB Triage (QS system process)
== END 2016-05-22 18:09 | disposition home or self-care (01) ==
LOC: LC 14:53
PROVIDERS: ATTEND Obstetrics & Gynecology
PROC: 4A1HXCZ Monitoring of Products of Conception, Cardiac Rate, External Approach (ICD-10-PCS; principal; 2016-05-22)
DX: O47.03 False labor before 37 completed weeks of gestation, third trimester (principal); Z3A.36 36 weeks gestation of pregnancy
CPT/HCPCS: 59025; 80307; 81005; 82962

== ENCOUNTER 2016-06-28 08:51 | Emergency (ER) | payer MEDICAID ==
--- NOTE | 2016-06-28 10:41 | ER Document Report ---
HPI - HPI Patient complains to provider of: skin rash Onset: Other Onset/Duration: Gradual - 3 days Quality of pain: Burning Pain Level: 3 Context: Patient complains of burning skin rash to right arm, left shoulder and right ear for the past 3 days. 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 Patient used [id number] hydrocortisone cream without improvement of her symptoms. Associated Symptoms: Other - Skin rash Exacerbated by: Denies Relieved by: Denies Similar symptoms previously: No Recently seen / treated by doctor: No - ROS ROS below otherwise negative: Yes Systems Reviewed and Negative: Yes All other systems reviewed and negative - CONSTITUTIONAL Constitutional: DENIES: Fever, Chills - NEURO Neurology: DENIES: Headache - RESPIRATORY Respiratory: DENIES: Coughing - GASTROINTESTINAL Gastrointestinal: DENIES: Nausea, Patient vomiting - DERM Skin Color: Normal Skin Problems: Rash Past Medical History - General Information source: Patient - Social History Smoking Status: Unknown if Ever Smoked Chew tobacco use (# tins/day): No Frequency of alcohol use: None Drug Abuse: None Occupation: hotel custodian Lives with: Family Family History: Reviewed & Not Pertinent Patient has suicidal ideation: No Patient has homicidal ideation: No - Past Medical History Cardiac Medical History: Reports: Hx Hypertension - during Denies: Hx Pulmonary Embolism Pulmonary Medical History: Reports: Hx Asthma - albuterol, advair Denies: Hx Sleep Apnea, Hx Tuberculosis Neurological Medical History: Denies: Hx Cerebrovascular Accident, Hx Seizures Endocrine Medical History: Denies: Hx Hyperthyroidism, Hx Hypothyroidism Renal/ Medical History: Denies: Hx Peritoneal Dialysis GI Medical History: Reports: Hx Gastroesophageal Reflux Disease, Hx Hiatal Hernia. Denies: Hx Ulcer Musculoskeltal Medical History: Denies Hx Fibromyalgia Psychiatric Medical History: Reports: Hx Anxiety, Hx Bipolar Disorder - Dx'ed at age 79 years old, Hx Depression - clinical and post Traumatic Medical History: Denies: Hx Fractures Infectious Medical History: Denies: Hx HIV Past Surgical History: Reports: Hx Abdominal Surgery - hernia, Hx Adenoidectomy , Hx Section - x 4Comment Only: Hx Tonsillectomy - adenoids - Immunizations Immunizations up to date: Yes Hx Diphtheria, Pertussis, Tetanus Vaccination: Yes Vertical Provider Document - CONSTITUTIONAL Agree With Documented VS: Yes Exam Limitations: No Limitations General Appearance: WD/WN, No Apparent Distress - INFECTION CONTROL TRAVEL OUTSIDE OF THE [place] IN LAST 30 DAYS: No - HEENT HEENT: Atraumatic, Normocephalic - NECK Neck: Normal Inspection, Supple - RESPIRATORY Respiratory: Breath Sounds Normal, No Respiratory Distress O2 Sat by Pulse Oximetry: 99 - CARDIOVASCULAR Cardiovascular: Regular Rate, Regular Rhythm - BACK Back: Normal Inspection - MUSCULOSKELETAL/EXTREMETIES Musculoskeletal/Extremeties: MAEW - NEURO Level of Consciousness: Awake, Alert, Appropriate - DERM Integumentary: Warm, Dry, Rash - Erythematous maculopapular rash to flexural antecubital area of right arm, right helix, and left shoulder Notes: Faint honey-colored crusting to right helix concerning for impetigo Course - Vital Signs Vital signs: Temp Pulse Resp BP Pulse Ox 97.3 F 71 20 137/88 H 99 06/28/16 08:55 06/28/16 08:55 06/28/16 08:55 06/28/16 08:55 06/28/16 08:55 Discharge - Discharge Clinical Impression: Skin rash, Impetigo Condition: Stable Disposition: HOME, SELF-CARE Instructions: Impetigo ([facility]), Bactroban Ointment ([facility]), Contact Dermatitis ([facility] ), Steroid Medication, Use of Diphenhydramine Additional Instructions: Return immediately for any new or worsening symptoms Followup with your primary care provider, call tomorrow to make a followup appointment Prescriptions: Mupirocin [Bactroban 2% Ointment 22 gm] 1 applic TP TID #22 gm Prednisone [Deltasone 20 mg Tablet] 3 tab PO DAILY 5 Days Forms: Return to Work Referrals: [facility] [Provider Group] - Follow up as needed
[2016-06-28 10:53] VITALS: BP 132/82
== END 2016-06-28 10:52 | disposition home or self-care (01) ==
LOC: ER 08:51
DX: R21 Rash and other nonspecific skin eruption (principal); L01.00 Impetigo, unspecified
CPT/HCPCS: 99282

== ENCOUNTER 2016-08-15 18:33 | Emergency (ER) | payer MEDICAID ==
[2016-08-15 19:16] VITALS: BP 130/89
--- NOTE | 2016-08-15 19:31 | ER Document Report ---
ED Medical Screen (RME) - General Chief Complaint: Abdominal Pain Stated Complaint: STOMACH PAIN Notes: This 30-year-old female complains of five-day history of abdominal pain. She feels like her abdomen is getting larger and harder. They're sharp epigastric pain. She complains of her finger swelling. She's had one episode of nausea vomiting diarrhea. Last menstrual period was 07/18/2016. She reports the discomfort got really bad prior to arrival. She had a Norplant placed in her right arm 2 weeks ago. I have greeted and performed a rapid initial assessment of this patient. A comprehensive ED assessment and evaluation of the patient, analysis of test results and completion of the medical decision making process will be conducted by additional ED providers. TRAVEL OUTSIDE OF THE [place] IN LAST 30 DAYS: No - Related Data Allergies/Adverse Reactions: clonazepam [From Klonopin] Allergy (Severe, Verified 06/28/16 10:40) elevated BP Penicillins Allergy (Intermediate, Verified 06/28/16 10:40) Hallucinations latex [Latex] Allergy (Mild, Verified 06/28/16 10:40) rash ketorolac tromethamine [From Toradol] Allergy (Verified 06/28/16 10:40) Hallucinations onions Allergy (Intermediate, Uncoded 06/28/16 10:40) SOB, rash, itch Past Medical History - Past Medical History Cardiac Medical History: Reports: Hx Hypertension - during Denies: Hx Pulmonary Embolism Pulmonary Medical History: Reports: Hx Asthma - albuterol, advair Denies: Hx Sleep Apnea, Hx Tuberculosis Neurological Medical History: Denies: Hx Cerebrovascular Accident, Hx Seizures Endocrine Medical History: Denies: Hx Hyperthyroidism, Hx Hypothyroidism Renal/ Medical History: Denies: Hx Peritoneal Dialysis GI Medical History: Reports: Hx Gastroesophageal Reflux Disease, Hx Hiatal Hernia. Denies: Hx Ulcer Musculoskeltal Medical History: Denies Hx Fibromyalgia Psychiatric Medical History: Reports: Hx Anxiety, Hx Bipolar Disorder - Dx'ed at age 79 years old, Hx Depression - clinical and post Traumatic Medical History: Denies: Hx Fractures Infectious Medical History: Denies: Hx HIV Past Surgical History: Reports: Hx Abdominal Surgery - hernia, Hx Adenoidectomy , Hx Section - x 4Comment Only: Hx Tonsillectomy - adenoids - Immunizations Immunizations up to date: Yes Hx Diphtheria, Pertussis, Tetanus Vaccination: Yes Physical Exam - Vital signs Vitals: Temp Pulse Resp BP Pulse Ox 97.6 F 72 18 130/89 H 100 08/15/16 19:14 08/15/16 19:14 08/15/16 19:14 08/15/16 19:14 08/15/16 19:14 Course - Vital Signs Vital signs: Temp Pulse Resp BP Pulse Ox 97.6 F 72 18 130/89 H 100 08/15/16 19:14 08/15/16 19:14 08/15/16 19:14 08/15/16 19:14 08/15/16 19:14
[2016-08-15] MEDS ORDERED: LIDOCAINE 2% VISCOUS SOLN 20 ML UDCUP PO ONE (19:32)
[2016-08-15] MEDS ORDERED: MAG HYDROX/AL HYDROX/SIMETH SUSP 30 ML UDCUP PO ONE (19:32)
[2016-08-15 19:52] LABS: ABSOLUTE EOSINOPHILS # (AUTO) 0.2 10^3/uL (0.0-0.6); ABSOLUTE LYMPHOCYTES (AUTO) 3.2 10^3/uL (0.5-4.7); ABSOLUTE MONOCYTES (AUTO) 0.5 10^3/uL (0.1-1.4); ABSOLUTE NEUT (AUTO) 4.2 10^3/uL (1.7-8.2); BASOPHILS % (AUTO) 0.3 % (0-2); EOSINOPHILS % (AUTO) 1.9 % (0-6); HEMATOCRIT 37.2 % (36.0-47.0); HGB HCT DIFFERENCE -1.2; LYMPHOCYTES % (AUTO) 39.6 % (13-45); MEAN CORPUSCULAR HEMOGLOBIN 23.6 pg (27.0-33.4); MEAN CORPUSCULAR HGB CONC 32.2 g/dL (32.0-36.0); MEAN CORPUSCULAR VOLUME 73 fl (80-97); MONOCYTES % (AUTO) 6.6 % (3-13); RED BLOOD COUNT 5.08 10^6/uL (3.72-5.28); RED CELL DISTRIBUTION WIDTH 20.4 % (11.5-14.0); SEGMENTED NEUTROPHILS % (AUTO) 51.6 % (42-78); WHITE BLOOD COUNT 8.1 10^3/uL (4.0-10.5)
[2016-08-15 20:00] LABS: APPEARANCE,URINE SLIGHTLY-CLOUDY; BILIRUBIN,URINE NEGATIVE (NEGATIVE); GLUCOSE, URINE NEGATIVE (NEGATIVE); KETONES,URINE NEGATIVE (NEGATIVE); LEUKOCYTE ESTERASE,URINE NEGATIVE (NEGATIVE); NITRITE,URINE NEGATIVE (NEGATIVE); PROTEIN,URINE NEGATIVE (NEGATIVE); UROBILINOGEN,URINE NEGATIVE mg/dL (<2.0)
[2016-08-15 20:07] LABS: ALANINE AMINOTRANSFERASE 33 U/L (9-52); ALBUMIN 4.6 g/dL (3.5-5.0); ALKALINE PHOSPHATASE 57 U/L (38-126); ANION GAP 16 (5-19); ASPARTATE AMINO TRANSFERASE 25 U/L (14-36); BILIRUBIN,DIRECT 0.3 mg/dL (0.0-0.4); BILIRUBIN,TOTAL 0.5 mg/dL (0.2-1.3); BLOOD UREA NITROGEN 13 mg/dL (7-20); CALCIUM 9.9 mg/dL (8.4-10.2); CARBON DIOXIDE 23 mmol/L (22-30); CHLORIDE 108 mmol/L (98-107); CREATININE RESULT 0.73 mg/dL (0.52-1.25); GLUCOSE 91 mg/dL (75-110); POTASSIUM 4.3 mmol/L (3.6-5.0); SODIUM 146.5 mmol/L (137-145); TOTAL PROTEIN 7.7 g/dL (6.3-8.2)
== END 2016-08-15 22:00 | disposition left against medical advice (07) ==
LOC: ER 18:33
DX: R10.13 Epigastric pain (principal); R11.2 Nausea with vomiting, unspecified; R19.7 Diarrhea, unspecified; Z88.0 Allergy status to penicillin; Z91.040 Latex allergy status
CPT/HCPCS: 99281; 36415; 84703; 85025; 80053; 81001; J3490 ×2

== ENCOUNTER 2017-12-20 00:14 | Emergency (ER) | payer SELFPAY ==
[2017-12-20] MEDS ORDERED: NORMAL SALINE 1000 ML 1,000 ML IV ONE (00:38)
[2017-12-20] MEDS ORDERED: LORAZEPAM INJ 2 MG/1 ML VIAL IV ONE ×2 (00:39→02:50)
--- NOTE | 2017-12-20 00:41 | ER Document Report ---
ED General - General Chief Complaint: Shortness Of Breath Stated Complaint: DIFFICULTY BREATHING Time Seen by Provider: 12/20/17 00:34 Notes: Patient is a 32-year-old female known to the ED who presents with feeling very unwell. She has been smoking methamphetamine for the last 7 days. Some marijuana. She says that she feels short of breath and she feels shaky all over and her whole body hurts. No focal weakness. Mild headache. No fevers. Her boyfriend has been doing the same thing but he has been okay. The boyfriend mentions that 2 of the people in a hotel that they were staying at have also been doing the same drugs and had to come to the hospital as well. TRAVEL OUTSIDE OF THE [place] IN LAST 30 DAYS: No - Related Data Allergies/Adverse Reactions: clonazepam [From Klonopin] Allergy (Severe, Verified 06/28/16 10:40) elevated BP Penicillins Allergy (Intermediate, Verified 06/28/16 10:40) Hallucinations latex [Latex] Allergy (Mild, Verified 06/28/16 10:40) rash ketorolac tromethamine [From Toradol] Allergy (Verified 06/28/16 10:40) Hallucinations onions Allergy (Intermediate, Uncoded 06/28/16 10:40) SOB, rash, itch Past Medical History - Social History Smoking Status: Current Every Day Smoker Frequency of alcohol use: Occasional Drug Abuse: Marijuana, Methamphetamine Family History: Reviewed & Not Pertinent - Past Medical History Cardiac Medical History: Reports: Hx Hypertension - during Denies: Hx Pulmonary Embolism Pulmonary Medical History: Reports: Hx Asthma - albuterol, advair Denies: Hx Sleep Apnea, Hx Tuberculosis Neurological Medical History: Denies: Hx Cerebrovascular Accident, Hx Seizures Endocrine Medical History: Denies: Hx Hyperthyroidism, Hx Hypothyroidism Renal/ Medical History: Denies: Hx Peritoneal Dialysis GI Medical History: Reports: Hx Gastroesophageal Reflux Disease, Hx Hiatal Hernia. Denies: Hx Ulcer Musculoskeletal Medical History: Denies Hx Fibromyalgia Psychiatric Medical History: Reports: Hx Anxiety, Hx Bipolar Disorder - Dx'ed at age 79 years old, Hx Depression - clinical and post Traumatic Medical History: Denies: Hx Fractures Infectious Medical History: Denies: Hx HIV Past Surgical History: Reports: Hx Abdominal Surgery - hernia, Hx Adenoidectomy , Hx Section - x 4Comment Only: Hx Tonsillectomy - adenoids - Immunizations Immunizations up to date: Yes Hx Diphtheria, Pertussis, Tetanus Vaccination: Yes Review of Systems - Review of Systems Notes: My Normal Review Basic REVIEW OF SYSTEMS: CONSTITUTIONAL : Denies fever, chills, or sweats. Denies recent illness. EENT: Denies eye, ear, throat, or mouth pain or symptoms. Denies nasal or sinus congestion. CARDIOVASCULAR: Chest discomfort RESPIRATORY: Short of breath GASTROINTESTINAL: Denies abdominal pain. Denies nausea, vomiting, or diarrhea. Denies constipation. GENITOURINARY: Denies difficulty urinating, painful urination, burning, frequency, or blood in urine. MUSCULOSKELETAL: Diffuse muscle pain SKIN: Denies rash or skin lesions. NEUROLOGICAL: Denies altered mental status or loss of consciousness. Has a mild headache. Denies weakness or paralysis or loss of use of either side. Denies problems with gait or speech. Denies sensory or motor loss. PSYCHIATRIC: Denies anxiety or stress or depression. ALL OTHER SYSTEMS REVIEWED AND NEGATIVE. Physical Exam - Vital signs Vitals: Resp 19 12/20/17 00:29 - Notes Notes: General Appearance: Patient laying in bed with tremor throughout her arms and legs. She is awake and alert. She does answer questions appropriate. She says her whole body hurts. Vitals: reviewed, See vital signs table. Head: no swelling or tenderness to the head Eyes: PERRL, EOMI, Conjuctiva clear Mouth: No decreasd moisture Throat: No tonsillar inflammation, No airway obstruction, No lymphadenopathy Neck: Supple, no neck tenderness, No thyromegaly Lungs: No wheezing, No rales, No rhonci, No accessory muscle use, good air exchange bilaterally. Heart: Mildly tachycardic rate, Regular rythm, No murmur, no rub Abdomen: Normal BS, soft, No rigidity, No abdominal tenderness, No guarding, no rebound, no abdominal masses, no organomegaly Extremities: strength 5/5 in all extremities, good pulses in all extremities, no swelling or tenderness in the extremities, no edema. Skin: warm, dry, appropriate color, no rash Neuro: speech clear, oriented x 3, normal affect, responds appropriately to questions. Cranial nerves II through XII are intact. Patient able move all extremities without difficulty. Distal sensation intact. Course - Re-evaluation Re-evalutation: 12/20/17 02:51 Patient was feeling better but then her boyfriend had a seizure in the room and now she is emotionally upset and crying. Heart rate is in the 90s. It was down to the 80s. Her chest tightness everything was gone but of course now has returned now that she is upset. I will give her one more dose of Ativan. 12/20/17 04:52 Patient is improved. She will be discharged home. She is informed not to do any illegal street drugs including methamphetamine. Told her to continue use of this will kill her. I am not convinced that she will follow my instructions as she has been told this before and continues to use street drugs. Dictation of this chart was performed using voice recognition software; therefore, there may be some unintended grammatical errors. - Vital Signs Vital signs: Temp Pulse Resp BP Pulse Ox 17 144/105 H 100 12/20/17 04:02 12/20/17 04:02 12/20/17 04:02 - Laboratory Result Diagrams: 12/20/17 01:40 12/20/17 01:40 Laboratory results interpreted by me: 12/20/17 12/20/17 01:40 01:40 MCV 78 L MCH 26.9 L Sodium 145.1 H Potassium 3.5 L Carbon Dioxide 21 L Calcium 10.4 H Salicylates < 1.0 L Acetaminophen < 10 L - EKG Interpretation by Me Additional EKG results interpreted by me: 12/20/17 00:39 EKG is reviewed and interpreted by me. EKG shows sinus cardia with rate of [address] segment elevation or depression. No ischemic T-wave inversions. UT interval, QRS duration, QTc intervals are within normal range. No old EKG available for comparison. Discharge - Discharge Clinical Impression: Methamphetamine abuse Condition: Good Disposition: HOME, SELF-CARE Additional Instructions: Stop doing street drugs. Continued use of street drugs will lead to your . Please return to [facility] ER if [facility] have recurrent headaches, chest pain, or difficulty breathing. Forms: Return to Work
--- NOTE | 2017-12-20 01:29 | RADIOLOGY REPORT (SQ) ---
EXAM DESCRIPTION: XR CHEST 1 VIEW COMPLETED DATE/TME: 12/20/2017 00:38 CLINICAL HISTORY: 32 years, Female, dyspnea COMPARISON: 09/29/2012 NUMBER OF VIEWS: One TECHNIQUE: AP portable chest LIMITATIONS: None. FINDINGS: Mild rightward convexity thoracic scoliosis. Lungs appear clear. No pneumothorax. No consolidation or fluid. Cardiac size is within normal limits. No evidence of acute process. IMPRESSION: No evidence of acute process 2010 [employer]- All Rights Reserved
[2017-12-20 02:04] LABS: ABSOLUTE BASOPHILS # (AUTO) 0.1 10^3/uL (0.0-0.2); ABSOLUTE LYMPHOCYTES (AUTO) 3.3 10^3/uL (0.5-4.7); ABSOLUTE MONOCYTES (AUTO) 0.5 10^3/uL (0.1-1.4); ABSOLUTE NEUT (AUTO) 5.4 10^3/uL (1.7-8.2); BASOPHILS % (AUTO) 0.7 % (0-2); EOSINOPHILS % (AUTO) 0.5 % (0-6); HEMATOCRIT 39.5 % (36.0-47.0); HEMOGLOBIN 13.6 g/dL (12.0-15.5); MEAN CORPUSCULAR HEMOGLOBIN 26.9 pg (27.0-33.4); MEAN CORPUSCULAR HGB CONC 34.4 g/dL (32.0-36.0); MEAN CORPUSCULAR VOLUME 78 fl (80-97); MONOCYTES % (AUTO) 5.6 % (3-13); PLATELET COUNT 380 10^3/uL (150-450); RED BLOOD COUNT 5.05 10^6/uL (3.72-5.28); RED CELL DISTRIBUTION WIDTH 13.7 % (11.5-14.0); SEGMENTED NEUTROPHILS % (AUTO) 58.2 % (42-78); TOTAL CELLS COUNTED % (AUTO) 100 %; WHITE BLOOD COUNT 9.3 10^3/uL (4.0-10.5)
[2017-12-20 02:26] LABS: ALANINE AMINOTRANSFERASE 35 U/L (9-52); ALBUMIN 4.6 g/dL (3.5-5.0); ALKALINE PHOSPHATASE 90 U/L (38-126); ASPARTATE AMINO TRANSFERASE 24 U/L (14-36); BILIRUBIN,DIRECT 0.3 mg/dL (0.0-0.4); BILIRUBIN,TOTAL 0.7 mg/dL (0.2-1.3); BLOOD UREA NITROGEN 10 mg/dL (7-20); CALCIUM 10.4 mg/dL (8.4-10.2); CARBON DIOXIDE 21 mmol/L (22-30); CHLORIDE 105 mmol/L (98-107); CREATINE KINASE 56 U/L (30-135); GLUCOSE 85 mg/dL (75-110); POTASSIUM 3.5 mmol/L (3.6-5.0); TOTAL PROTEIN 8.1 g/dL (6.3-8.2)
[2017-12-20 02:27] LABS: ACETAMINOPHEN < 10 ug/mL (10-30); ALCOHOL < 10 mg/dL (NONE DETECTED); SALICYLATE < 1.0 mg/dL (2.0-20.0)
[2017-12-20 02:30] LABS: ANION GAP 19 (5-19); SODIUM 145.1 mmol/L (137-145)
[2017-12-20 05:01] LABS: AMORPHOUS SEDIMENT,URINE TRACE /HPF; APPEARANCE,URINE CLOUDY; BILIRUBIN,URINE NEGATIVE (NEGATIVE); GLUCOSE, URINE NEGATIVE (NEGATIVE); KETONES,URINE 80 mg/dL (NEGATIVE); LEUKOCYTE ESTERASE,URINE TRACE (NEGATIVE); NITRITE,URINE NEGATIVE (NEGATIVE); PROTEIN,URINE 100 mg/dL (NEGATIVE); URINE SPECIFIC GRAVITY 1.026
[2017-12-20 05:02] LABS: COLOR,URINE YELLOW
[2017-12-20 05:12] VITALS: BP 155/94
[2017-12-20 05:14] LABS: URINE BARBITURATES SCREEN NEGATIVE; URINE BENZODIAZEPINES SCREEN NEGATIVE; URINE COCAINE SCREEN NEGATIVE; URINE MARIJUANA (THC) SCREEN UNCONFIRMED POSITIVE; URINE METHADONE SCREEN NEGATIVE; URINE PHENCYCLIDINE SCREEN NEGATIVE
--- NOTE | 2017-12-20 08:40 | EKG REPORT ---
SEVERITY:- ABNORMAL ECG - SINUS TACHYCARDIA WITH SINUS ARRHYTHMIA BORDERLINE Q WAVES IN LATERAL LEADS INFERIOR Q WAVES, PROBABLY NORMAL VARIATION LATERAL Q WAVES, PROBABLY NORMAL VARIATION : Confirmed by: Nena Medina 20-Dec-2017 08:40:17
== END 2017-12-20 05:12 | disposition home or self-care (01) ==
LOC: ER 00:14
DX: R06.02 Shortness of breath (principal); F11.10 Opioid abuse, uncomplicated; F17.200 Nicotine dependence, unspecified, uncomplicated; Z88.0 Allergy status to penicillin; Z91.040 Latex allergy status
CPT/HCPCS: 93005; 96376; 99285; 96361; 96374; 36415; 80307 ×4; 82550; 83735; 84703; 85025; 80053; 81001; 84484; 71045; 93010; J2060; J7030